=== PATIENT | male | born 1995 | race Caucasian/White ===

== ENCOUNTER 2021-06-11 12:00 | Day surgery (SDC) | payer OTHER ==
[~2021-06-11] VITALS: Ht 190.5 cm; Wt 84.8 kg
[~2021-06-11 12:00] MED LIST: ESOM1CAP5 PO; LIDOCAINE 2% 100MG/5ML SDV (FOR ANES.) As Ordered ONE; NS 1,000 ML IV ONE; PEPC1TAB5 PO; propofoL 200 MG/20 ML VIAL As Ordered ONE
[2021-06-11] MEDS ORDERED: fentaNYL 100 MCG/2 ML INJECTION As Ordered ONE (13:43)
[2021-06-11] MEDS ORDERED: propofoL 200 MG/20 ML VIAL As Ordered ONE (14:06)
[2021-06-11 14:30] VITALS: BP 117/69
== END 2021-06-11 14:48 | disposition home or self-care (01) ==
LOC: M OPP 12:00
PROVIDERS: ATTEND Internal Medicine Gastroenterology
DX: K21.9 Gastro-esophageal reflux disease without esophagitis (principal); R12 Heartburn; Z88.8 Allergy status to other drugs, medicaments and biological substances; F17.220 Nicotine dependence, chewing tobacco, uncomplicated
CPT/HCPCS: 43235; J3010

== ENCOUNTER 2021-11-17 18:53 | Emergency (ER) | payer OTHER ==
[~2021-11-17] VITALS: Ht 190.5 cm; Wt 84.1 kg
[~2021-11-17 18:53] MED LIST changes: -LIDOCAINE 2% 100MG/5ML SDV (FOR ANES.) As Ordered ONE; -NS 1,000 ML IV ONE; -propofoL 200 MG/20 ML VIAL As Ordered ONE
[2021-11-17 18:56] VITALS: BP 139/78
[2021-11-17] MEDS ORDERED: KETOROLAC 60MG 2ML VIAL IM ONE (22:20)
[2021-11-17] MEDS ORDERED: LIDOCAINE 5% (LIDODERM) PATCH TD ONE (22:20)
[2021-11-17] MEDS ORDERED: diazePAM 10 MG TAB PO ONE (22:20)
[2021-11-18] MEDS ORDERED: ASPE4PAD TOP
[2021-11-18] MEDS ORDERED: METH-1165 PO
[2021-11-18] MEDS ORDERED: NAPR-837 PO
[2021-11-18] MEDS ORDERED: traMADol 50 MG TAB PO ONE (00:05)
[2021-11-18] MEDS ORDERED: **NOTE PATIENT COMMENT** MISC XX SCH (21:00)
== END 2021-11-18 00:23 | disposition home or self-care (01) ==
LOC: EDBD 18:53 → M ED 18:53
DX: S39.92XA Unspecified injury of lower back, initial encounter (principal); X50.0XXA Overexertion from strenuous movement or load, initial encounter; Y92.9 Unspecified place or not applicable; Y93.B3 Activity, free weights; Y99.9 Unspecified external cause status; Z79.899 Other long term (current) drug therapy
CPT/HCPCS: 72110; 96372; 99284; J1885